=== PATIENT | female | born 1990 | race Caucasian/White ===

== ENCOUNTER 2016-10-28 19:49 | Emergency (ER) | payer OTHER ==
[~2016-10-28] VITALS: Ht 154.9 cm; Wt 68.0 kg
[2016-10-28 19:53] VITALS: BP 136/88; PULSE 77; RESP 16; TEMP 97.9; O2SAT 100
[2016-10-28] MEDS ORDERED: CYCLOBENZAPRINE HCL 10 MG TAB PO ONE (20:30)
[2016-10-28] MEDS ORDERED: IBUPROFEN 800 MG TAB PO ONE (20:30)
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
[2016-10-28] MEDS ORDERED: CYCL1TAB29 PO ×2 (21:11→21:24)
[2016-10-28] MEDS ORDERED: DICL50TA3 PO ×2 (21:11→21:24)
== END 2016-10-28 21:30 | disposition home or self-care (01) ==
LOC: NEPB 19:49
DX: M54.2 Cervicalgia (principal); M54.9 Dorsalgia, unspecified; S63.91XA Sprain of unspecified part of right wrist and hand, initial encounter; V43.53XA Car driver injured in collision with pick-up truck in traffic accident, initial encounter; Y92.411 Interstate highway as the place of occurrence of the external cause
CPT/HCPCS: 71020; 72040; 73130; 99283